=== PATIENT | female | born 1940 | race Caucasian/White ===

== ENCOUNTER 2017-10-12 14:22 | Emergency (ER) | payer OTHER, MEDICARE ==
--- NOTE | 2017-10-12 14:32 | EDPHY ---
H & P Time Seen by Provider: 10/12/17 14:32 HPI/ROS: CHIEF COMPLAINT: Rash HISTORY OF PRESENT ILLNESS: This is a 77-year-old female with history of "very sensitive skin" as well as chronic fatigue who presents with a widespread rash. Patient states approximately a month ago she use some soap which had hemp in it. She knows that she is sensitive to cannabinoids. She then noticed discrete patches of erythematous, slightly scaly, rash around her ankles. These have been present for the last month. 4 days ago she took a bath with a small amount of sea salt. About that same time she also noticed that she was developing some swelling in her ankles and dorsum of her feet. Patient reports the next morning she woke with a widespread rash on her chest, arms, abdomen, upper legs. She has also noticed that the rash has coalesced into diffuse erythema over the lower extremities. She went to see urgent care at [facility] today and was referred here due to concerns regarding possible cellulitis as well as possible DVT. Patient denies any associated symptoms such as swelling of the eyelids, lips, or throat. She denies any shortness of breath. No wheezing. Patient denies any abdominal pain, nausea, vomiting. She reports she takes no medications daily. She has not used any medications to treat the rash.. REVIEW OF SYSTEMS: Aside from elements discussed in the HPI, a comprehensive 10-point review of systems was reviewed and is negative. PAST MEDICAL HISTORY: Chronic fatigue. Otherwise patient denies. SOCIAL HISTORY: Lives independently. Nonsmoker. VITAL SIGNS Reviewed by me. GENERAL: Pleasant, thin female. No respiratory distress. HEENT: Atraumatic. Eyes: No icterus, no injection. No eyelid swelling. Mouth: moist mucous membranes. No erythema or lesions. No uvular edema. No lip swelling. Neck: supple with no adenopathy. No stridor. LUNGS: Clear to auscultation bilaterally, no wheezes, rhonchi or rales. CARDIAC: Regular rate and rhythm, no rubs, murmurs or gallops. ABDOMEN: Soft, nontender, nondistended, bowel sounds normal. BACK: No CVA tenderness. EXTREMITIES: No trauma. No edema. Range of motion is normal throughout. NEURO: Alert and oriented, grossly nonfocal. SKIN: Across the chest, arms, thighs, and lower back: discrete, erythematous plaques with small vesicles. No central clearing. Does not appear to be hives. No pustular lesions. Legs: Confluent, erythematous, scaling rash covers the anterior shins bilaterally. Edema and swelling is worse on the left than the right. 1+ pitting edema over the dorsum of the feet bilaterally. PSYCHIATRIC: Normal mentation, no agitation. Constitutional: Initial Vital Signs Temperature (C) 36.5 C 10/12/17 14:47 Heart Rate 108 H 10/12/17 14:47 Respiratory Rate 18 10/12/17 14:47 Blood Pressure 151/83 H 10/12/17 14:47 O2 Sat (%) 98 10/12/17 14:47 O2 Delivery Mode Room Air Allergies/Adverse Reactions: ASA Allergy (Uncoded 11/20/11 13:47) EGGS Allergy (Uncoded 11/20/11 13:46) WHEAT Allergy (Uncoded 11/20/11 13:47) Home Medications: Medication Instructions Recorded Miscellaneous Medical Supply [NO 1 ea MISC AD 11/20/11 HOME MEDS] Cephalexin [Keflex (*)] 250 mg PO TID 5 Days cap 10/12/17 Mupirocin 2% [Bactroban 2%] 1 gm TP TID 5 Days oint 10/12/17 predniSONE [Prednisone] 10 - 20 mg PO DAILY 12 Days tablet 10/12/17 Medical Decision Making - Diagnostics EKG Interpretation: 12-LEAD EKG: Please see the full report in [facility]. My interpretation: Sinus tachycardia, deep QS complexes across the precordium. Nonspecific interventricular conduction delay. No acute ischemic changes Imaging Results: Imaging Impressions Extremity Venous Study 10/12/17 14:57 Impression: No evidence of deep vein thrombosis. Findings discussed with Adriana Silva MD 10/12/2017 at 15:22. Chest X-Ray 10/12/17 16:56 Impression: No evidence for acute cardiopulmonary abnormality. Imaging: Discussed imaging studies w/ call out clerk Radiologist, I viewed and interpreted images myself ED Course/Re-evaluation: 77-year-old female presents with a rash of 1 month duration and significant spread and worsening of the rash over the last 4 days. Provider at [facility] was concerned regarding possible cellulitis and possible deep venous thrombus. Patient's ultrasound is negative for DVT. Patient has not had a fever. Minimal warmth on the rash on the lower extremity. Labs demonstrate creatinine of 1.1. Troponin is negative. At this point we will treat the patient for cellulitis of the lower extremities and treat her rash as a significant contact type dermatitis with prednisone and Benadryl. Patient reports that she is extremely sensitive to medications and declines to take a typical adult dose, taking only half to a 3rd of the adult dose. She was discharged with prednisone 20 mg taper over 12 days. Benadryl 12.5 mg by mouth 2 times a day for itching and help control the rash. She was placed on Keflex 250 mg three times daily for 7 days. Differential Diagnosis: Differential diagnosis of the patient's rash was considered including but not limited to allergic reaction, urticaria, viral exanthem, erythema multiforme, Ruvalcaba-Carl syndrome, petechial rash, scarlatiniform rash, HUS, cellulitis, or purpuric rash. - Data Points Laboratory Results: 10/12/17 10/12/17 10/12/17 16:36 16:29 16:02 POC Sodium 139 mEq/L mEq/L (135-145) POC Potassium 3.9 mEq/L mEq/L (3.3-5.0) POC Chloride 104.0 mEq/L mEq/L (97-110) POC Total CO2 27 mEq/L mEq/L (22-31) POC BUN 11 mg/dL mg/dL (7-23) POC Creatinine 1.1 mg/dL H mg/dL (0.6-1.0) POC Glucose 131 mg/dL H mg/dL (70-100) POC Calcium 9.5 mg/dL mg/dL (8.5-10.4) POC Total Bilirubin 0.6 mg/dL mg/dL 0.6 mg/dL mg/dL (0.1-1.4) (0.1-1.4) POC GGT 9 IU/L IU/L (5-65) POC AST 34 IU/L IU/L 32 IU/L IU/L (14-46) (14-46) POC ALT 9 IU/L IU/L 22 IU/L IU/L (9-52) (9-52) POC Alk Phosphatase 88 IU/L IU/L 85 IU/L IU/L (38-126) (38-126) POC Troponin I 0.00 ng/mL ng/mL (0.00-0.08) POC Total Protein 7.5 g/dL g/dL 7.6 g/dL g/dL (6.3-8.2) (6.3-8.2) POC Albumin 4.5 g/dL g/dL 4.1 g/dL g/dL (3.5-5.0) (3.5-5.0) POC Amylase 82 IU/L IU/L (30-110) Medications Given: Discontinued Medications Diphenhydramine HCl (Benadryl) 12.5 mg PO EDNOW ONE Stop: 10/12/17 14:57 Last Admin: 10/12/17 16:18 Dose: Not Given Diphenhydramine HCl (Benadryl Oral Liquid) 12.5 mg PO EDNOW ONE Stop: 10/12/17 16:10 Last Admin: 10/12/17 16:10 Dose: 12.5 mg Sodium Chloride (Ns) 500 mls @ 1,000 mls/hr IV EDNOW ONE PRN Reason: Protocol Stop: 10/12/17 15:26 Last Admin: 10/12/17 16:16 Dose: 500 mls Prednisone (Prednisone) 20 mg PO EDNOW ONE Stop: 10/12/17 14:58 Last Admin: 10/12/17 16:11 Dose: 20 mg Point of Care Test Results: Chemistry 10/12/17 10/12/17 10/12/17 16:36 16:29 16:02 POC Sodium 139 mEq/L mEq/L (135-145) POC Potassium 3.9 mEq/L mEq/L (3.3-5.0) POC Chloride 104.0 mEq/L mEq/L (97-110) POC Total CO2 27 mEq/L mEq/L (22-31) POC BUN 11 mg/dL mg/dL (7-23) POC Creatinine 1.1 mg/dL H mg/dL (0.6-1.0) POC Glucose 131 mg/dL H mg/dL (70-100) POC Calcium 9.5 mg/dL mg/dL (8.5-10.4) POC Total Bilirubin 0.6 mg/dL mg/dL 0.6 mg/dL mg/dL (0.1-1.4) (0.1-1.4) POC GGT 9 IU/L IU/L (5-65) POC AST 34 IU/L IU/L 32 IU/L IU/L (14-46) (14-46) POC ALT 9 IU/L IU/L 22 IU/L IU/L (9-52) (9-52) POC Alk Phosphatase 88 IU/L IU/L 85 IU/L IU/L (38-126) (38-126) POC Troponin I 0.00 ng/mL ng/mL (0.00-0.08) POC Total Protein 7.5 g/dL g/dL 7.6 g/dL g/dL (6.3-8.2) (6.3-8.2) POC Albumin 4.5 g/dL g/dL 4.1 g/dL g/dL (3.5-5.0) (3.5-5.0) POC Amylase 82 IU/L IU/L (30-110) Departure - Departure Disposition: Home, Routine, Self-Care Clinical Impression: Rash Cellulitis Qualifiers: Site of cellulitis: extremity Site of cellulitis of extremity: lower extremity Laterality: left Qualified Code(s): L03.116 - Cellulitis of left lower limb Condition: Good Instructions: Cellulitis (ED), Leg Edema (ED), Dermatitis (ED) Additional Instructions: Please take antibiotics as directed. Please take the medications to help with your rash as directed. The recommended doses have already been adjusted for your concerns regarding sensitivity. Benadryl 12.5 mg by mouth 2 times a day for itching and to help control the rash. Another antihistamine is Pepcid. This is available [id number]. It will not make you sleepy as Benadryl might. The dose is 20 mg by mouth each evening for the next 4-5 days. Please take the prednisone as directed. It is a very slow taper. Please take antibiotics as directed. It is important that you take the full 250 mg per dose. Please follow up with her primary care physician early next week for reexamination. Further investigation into the reason for your leg swelling may also be needed. Referrals: NONE *PRIMARY CARE P,. [Primary Care Provider] - As per Instructions Manish Méndez DO [Doctor of Osteopathy] - As per Instructions (Dr. Méndez is on-call for unassigned patients. Please follow up with him or with 1 of his colleagues early next week.) Prescriptions: Cephalexin [Keflex (*)] 250 mg PO TID 5 Days cap Mupirocin 2% [Bactroban 2%] 1 gm TP TID 5 Days oint predniSONE [Prednisone] 10 - 20 mg PO DAILY 12 Days tablet
[2017-10-12] MEDS ORDERED: diphenhydrAMINE 25 MG CAP PO ONE (14:56)
[2017-10-12] MEDS ORDERED: NS 500 ML IV ONE (14:57)
[2017-10-12] MEDS ORDERED: predniSONE 20 MG TAB PO ONE (14:57)
--- NOTE | 2017-10-12 15:37 | CPEKG ---
Heart Rate: 109 RR Interval: 550 P-R Interval: 204 QRSD Interval: 118 QT Interval: 352 QTC Interval: 475 P [place]: 90 QRS [place]: -44 T Wave [place]: 87 EKG Severity - ABNORMAL ECG - EKG Impression: SINUS TACHYCARDIA EKG Impression: NONSPECIFIC IVCD WITH LAD EKG Impression: LEFT VENTRICULAR HYPERTROPHY EKG Impression: ANTERIOR INFARCT, POSSIBLY ACUTE Electronically Signed By: Adrien Mix 15-Oct-2017 05:53:47
[2017-10-12] MEDS ORDERED: diphenhydrAMINE 12.5 MG/5 ML UDCUP ONE (16:07)
[2017-10-12] MEDS ORDERED: diphenhydrAMINE 12.5 MG/5 ML UDCUP PO ONE (16:09)
[2017-10-12 19:05] VITALS: BP 148/72
== END 2017-10-12 18:00 | disposition home or self-care (01) ==
LOC: CED 14:22
DX: R21 Rash and other nonspecific skin eruption (principal); L03.116 Cellulitis of left lower limb; E86.9 Volume depletion, unspecified
CPT/HCPCS: 71046; 93005; 93971; 96360; 99285; J7512; 80053-PO; 80076-PO; 82150-PO; 84484-PO

== ENCOUNTER 2017-10-29 20:24 | Emergency (ER) | payer OTHER, MEDICARE ==
[2017-10-29 20:33] VITALS: BP 179/90
[2017-10-29] MEDS ORDERED: AMOXICILLIN 250 MG PREPACK#4 BTL TAKEHOME ONE (20:42)
--- NOTE | 2017-10-29 20:48 | EDPHY ---
H & P Time Seen by Provider: 10/29/17 20:34 HPI/ROS: CHIEF COMPLAINT: Broken tooth HISTORY OF PRESENT ILLNESS: 77-year-old female broke tooth 16 this evening when eating. No pain. Concerned about developing infection. No anticoagulant use. No facial swelling. PHYSICAL EXAM (Prior to examination, patient consented to physical exam, hands were washed and my usual and customary physical exam procedures followed) 1) GENERAL: Well-developed, well-nourished, alert and oriented. Appears to be in no acute distress. 2) HEAD: Normocephalic 3) HEENT: [sclera anicteric . Symmetrical faces. Nasolabial folds symmetrical. Tooth 16 Is fractured. No tenderness. No evidence of periapical abscess. The floor of mouth soft. No evidence of Eliud's angina. Submandibular submental space is soft. No trismus no drooling. 4) LUNGS: Breathing comfortably. [ Smoking Status: Never smoked Constitutional: Initial Vital Signs Temperature (C) 36.6 C 10/29/17 20:30 Heart Rate 106 H 10/29/17 20:30 Respiratory Rate 16 10/29/17 20:30 Blood Pressure 179/90 H 10/29/17 20:30 O2 Sat (%) 96 10/29/17 20:30 O2 Delivery Mode Room Air Allergies/Adverse Reactions: ASA Allergy (Uncoded 11/20/11 13:47) EGGS Allergy (Uncoded 11/20/11 13:46) WHEAT Allergy (Uncoded 11/20/11 13:47) Home Medications: Medication Instructions Recorded Amoxicillin Trihydrate 500 mg PO Q8 7 Days cap 10/29/17 [Amoxicillin 500mg cap] MDM/Departure - MDM ED Course/Re-evaluation: No evidence of infection no evidence of abscess no evidence of Eliud's angina. She is pain free. She is primarily concerned about developing infection. Will initiate antibiotic therapy with amoxicillin, recommend follow up with dentist in 1-2 days. Usual and customary odontogenic precautions and instructions provided. I saw this patient independently based on established practice protocols. Care of patient under supervision of secondary supervising physician Dr Castillo . - Depart Disposition: Home, Routine, Self-Care Clinical Impression: Tooth fracture Qualifiers: Encounter type: initial encounter Fracture type: closed Qualified Code(s): S02.5XXA - Fracture of tooth (traumatic), initial encounter for closed fracture Condition: Good Instructions: Amoxicillin (By mouth), Acute Dental Trauma (ED) Additional Instructions: Return to the ER immediately if you cannot swallow, have drooling, fevers, neck stiffness, cannot open your jaw, or any other symptoms that concern you. Prescriptions: Amoxicillin Trihydrate [Amoxicillin 500mg cap] 500 mg PO Q8 7 Days cap Referrals: Abraham Burkett DDS [Doctor of Dental Surgery] - 1-2 days without fail
== END 2017-10-29 20:57 | disposition home or self-care (01) ==
DX: S02.5XXA Fracture of tooth (traumatic), initial encounter for closed fracture (principal); X58.XXXA Exposure to other specified factors, initial encounter; Y99.8 Other external cause status; Y93.89 Activity, other specified